=== PATIENT | male | born 1975 | race Caucasian/White ===

== ENCOUNTER 2017-09-24 14:20 | Emergency (ER) | payer MEDICAID ==
[~2017-09-24] VITALS: Ht 182.9 cm; Wt 135.0 kg
[~2017-09-24 14:20] MED LIST: CLOT15CR74 TP; CYCL-1 PO; HYDR-565 PO; ONDA4TAB6 PO; OXCA600T5 PO; PRED20TA PO; ROSU5TAB4 PO; TELM20TA2 PO; TRAZ-91 PO; WEL100T PO
[2017-09-24 14:26] VITALS: BP 155/83
[2017-09-24] MEDS ORDERED: ketorolac tromethamine 15mg/ml inj. IM ONE (15:45)
[2017-09-24] MEDS ORDERED: METH-360 PO (15:47)
[2017-09-24] MEDS ORDERED: IBUP-1985 PO (15:47)
== END 2017-09-24 15:58 | disposition home or self-care (01) ==
LOC: ER 14:21
DX: S29.012A Strain of muscle and tendon of back wall of thorax, initial encounter (principal); G89.29 Other chronic pain; E78.00 Pure hypercholesterolemia, unspecified; I10 Essential (primary) hypertension; Z98.890 Other specified postprocedural states; Z60.2 Problems related to living alone; X58.XXXA Exposure to other specified factors, initial encounter; Y93.89 Activity, other specified; Y92.89 Other specified places as the place of occurrence of the external cause; Y99.8 Other external cause status
CPT/HCPCS: 96372; 99283; J1885

== ENCOUNTER 2018-10-15 14:10 | Emergency (ER) | payer MEDICAID ==
[~2018-10-15] VITALS: Ht 177.8 cm; Wt 128.3 kg
[~2018-10-15 14:10] MED LIST changes: +APIX5TAB3 PO; +ATEN25TA PO; +BUPR300T53 PO; -CLOT15CR74 TP; -CYCL-1 PO; -HYDR-565 PO; +LOSA100T57 PO; +LURA40TA3 PO; +OMEP20CA11 PO; -ONDA4TAB6 PO; -OXCA600T5 PO; +PRAV20TA4 PO; -PRED20TA PO; -ROSU5TAB4 PO; -TELM20TA2 PO; +TOP100T PO; -TRAZ-91 PO; +TRAZ150T78 PO; -WEL100T PO
[2018-10-15 14:35] VITALS: BP 135/85
== END 2018-10-15 15:35 | disposition home or self-care (01) ==
LOC: ER 14:10
DX: L85.3 Xerosis cutis (principal); E78.00 Pure hypercholesterolemia, unspecified; I10 Essential (primary) hypertension; G89.29 Other chronic pain; F41.9 Anxiety disorder, unspecified; F32.9 Major depressive disorder, single episode, unspecified; Z86.69 Personal history of other diseases of the nervous system and sense organs; Z98.890 Other specified postprocedural states; Z79.899 Other long term (current) drug therapy; Z60.2 Problems related to living alone
CPT/HCPCS: 99281

== ENCOUNTER 2018-11-15 16:31 | Emergency (ER) | payer MEDICAID ==
[~2018-11-15] VITALS: Ht 177.8 cm; Wt 73.0 kg
--- NOTE | 2018-11-15 17:01 | NUR ---
SPOKE WITH PETE CASTANEDA: HE DOES NOT WANT LABS, PETE BELIEVES THAT HIS PRESENTATION APPEARS TO BE ANXIETY
--- NOTE | 2018-11-15 17:02 | NUR ---
LABS CANCELLED PER VERBAL ORDER FROM PETE CASTANEDA
--- NOTE | 2018-11-15 19:42 | NUR ---
gait test- start: 97% spo2, hr 72, rr 16 finish: 95%spo2, hr 72, rr 20
[2018-11-15 19:43] VITALS: BP 126/85
== END 2018-11-15 19:52 | disposition home or self-care (01) ==
LOC: ER 16:31
DX: R06.02 Shortness of breath (principal); E78.00 Pure hypercholesterolemia, unspecified; I10 Essential (primary) hypertension; G89.29 Other chronic pain; F41.9 Anxiety disorder, unspecified; F32.9 Major depressive disorder, single episode, unspecified; Z86.69 Personal history of other diseases of the nervous system and sense organs; Z98.890 Other specified postprocedural states; Z60.2 Problems related to living alone; Z79.899 Other long term (current) drug therapy
CPT/HCPCS: 71045; 93005; 99283

== ENCOUNTER → 2021-09-25 | Emergency (ER) | payer MEDICAID ==
[~2021-09-25] VITALS: Ht 182.9 cm; Wt 142.0 kg
[~2021-09-25] MED LIST changes: +LURA40TA2 PO; -LURA40TA3 PO; -OMEP20CA11 PO; +OMEP20CA15 PO
[2021-09-25 09:53] VITALS: BP 171/109
== END | disposition home or self-care (01) ==
LOC: ER 09:41
DX: G47.01 Insomnia due to medical condition (principal); R51.9 Headache, unspecified; E78.00 Pure hypercholesterolemia, unspecified; I10 Essential (primary) hypertension; G89.29 Other chronic pain; F41.9 Anxiety disorder, unspecified; F32.9 Major depressive disorder, single episode, unspecified; Z98.890 Other specified postprocedural states; Z60.2 Problems related to living alone; Z86.69 Personal history of other diseases of the nervous system and sense organs; Z79.01 Long term (current) use of anticoagulants; Z79.899 Other long term (current) drug therapy
CPT/HCPCS: 93005; 99283

== ENCOUNTER 2023-04-19 14:10 | Emergency (ER) | payer MEDICAID ==
[~2023-04-19] VITALS: Ht 182.9 cm; Wt 151.0 kg
[~2023-04-19 14:10] MED LIST changes: -LOSA100T57 PO; +LOSA100T58 PO
[2023-04-19 17:35] VITALS: BP 131/88; PULSE 74; RESP 18; O2SAT 97
[2023-04-19] MEDS ORDERED: METH-798 PO (18:12)
[2023-04-19] MEDS ORDERED: NAPR-56 PO (18:12)
[2023-04-19 18:23] VITALS: TEMP 98.1
== END 2023-04-19 18:26 | disposition home or self-care (01) ==
LOC: ER 14:11
DX: M54.50 Low back pain, unspecified (principal); E78.00 Pure hypercholesterolemia, unspecified; I10 Essential (primary) hypertension; G89.29 Other chronic pain; Z79.899 Other long term (current) drug therapy
CPT/HCPCS: 99283

== ENCOUNTER 2023-06-18 04:42 | Emergency (ER) | payer MEDICAID ==
[~2023-06-18] VITALS: Ht 182.9 cm; Wt 145.0 kg
[~2023-06-18 04:42] MED LIST changes: +METH-798 PO
[2023-06-18 05:36] LABS: URINE AMPHETAMINE SCREEN NEGATIVE (Neg); URINE BARBITUATE SCREEN NEGATIVE (Neg); URINE BENZODIAZEPINES SCREEN NEGATIVE (Neg); URINE CANNABINOID SCREEN NEGATIVE (Neg); URINE COCAINE SCREEN NEGATIVE (Neg); URINE METHADONE SCREEN NEGATIVE (Neg); URINE OPIATE SCREEN NEGATIVE (Neg); URINE PHENCYCLIDINE SCREEN NEGATIVE (Neg)
[2023-06-18 05:37] LABS: BASOPHILS # (AUTO) 0.1 X10'3 (0-0.2); BASOPHILS % (AUTO) 0.5 % (0-1); EOSINOPHILS # (AUTO) 0.3 X10'3 (0-0.9); EOSINOPHILS % (AUTO) 2.9 % (0-6); HEMATOCRIT 46.1 % (42.0-52.0); HEMOGLOBIN 15.6 g/dl (14.0-17.9); LYMPHOCYTES # (AUTO) 1.9 X10'3 (1.1-4.8); LYMPHOCYTES % (AUTO) 17.7 % (21-51); MEAN CORPUSCULAR HEMOGLOBIN 29.1 PG (27.0-31.0); MEAN CORPUSCULAR HGB CONC 33.7 g/dL (33.0-36.5); MEAN CORPUSCULAR VOLUME 86.2 FL (78-98); MEAN PLATELET VOLUME 9.9 FL (7.4-10.4); MONOCYTES % (AUTO) 8.9 % (2-12); NEUTROPHILS # (AUTO) 7.6 X10'3 (1.8-7.7); PLATELET COUNT 253 X10'3 (140-440); RED BLOOD COUNT 5.35 X10'6 (4.70-6.10); RED CELL DISTRIBUTION WIDTH 13.8 % (11.5-14.5); WHITE BLOOD COUNT 10.9 X10'3 (4.5-11.0)
[2023-06-18 05:43] LABS: ANION GAP 17 (8-16); BLOOD UREA NITROGEN 15 MG/DL (7-18); BUN/CREATININE RATIO 12.1 (10.0-20.0); CALCIUM 9.1 MG/DL (8.5-10.1); CHLORIDE 108 MMOL/L (99-107); CREATININE 1.24 MG/DL (0.60-1.10); GLUCOSE 115 MG/DL (70-104); POTASSIUM 3.7 MMOL/L (3.5-5.1); SODIUM 143 MMOL/L (135-145); THYROID STIMULATING HORMONE 4.75 ulU/ml (0.34-4.50); TOTAL CARBON DIOXIDE 18.4 MMOL/L (24-32); eCRCL 80 ML/MIN; eGFR 62 ML/MIN
[2023-06-18 05:45] LABS: ETHANOL < 10 MG/DL (<10)
[2023-06-18 07:10] LABS: FREE T4 (FREE THYROXINE) 1.02 NG/DL (0.73-1.40)
[2023-06-18] MEDS: normal saline 1000ML IV soln IVB ONE (08:02)
[2023-06-18 10:34] VITALS: BP 162/96; PULSE 80; RESP 18; O2SAT 99
[2023-06-18 16:08] VITALS: TEMP 98.2
== END 2023-06-18 16:13 | disposition home or self-care (01) ==
LOC: ER 04:43
DX: R45.851 Suicidal ideations (principal); Z20.822 Contact with and (suspected) exposure to COVID-19; E78.00 Pure hypercholesterolemia, unspecified; I10 Essential (primary) hypertension; F41.9 Anxiety disorder, unspecified; F32.A Depression, unspecified; Z79.899 Other long term (current) drug therapy; Z79.2 Long term (current) use of antibiotics; Z72.89 Other problems related to lifestyle
CPT/HCPCS: 36415; 80048; 80305; 80320; 84439; 84443; 85025; 87811; 96360; 96361; 99285; J7030; 99283

== ENCOUNTER 2023-06-20 03:01 | Inpatient (IN) | payer MEDICAID ==
[~2023-06-20] VITALS: Ht 182.9 cm; Wt 145.0 kg
[2023-06-20 08:00] LABS: BASOPHILS # (AUTO) 0.1 X10'3 (0-0.2); EOSINOPHILS # (AUTO) 0.3 X10'3 (0-0.9); EOSINOPHILS % (AUTO) 2.7 % (0-6); HEMATOCRIT 47.2 % (42.0-52.0); HEMOGLOBIN 15.8 g/dl (14.0-17.9); LYMPHOCYTES # (AUTO) 1.9 X10'3 (1.1-4.8); LYMPHOCYTES % (AUTO) 19.7 % (21-51); MEAN CORPUSCULAR HEMOGLOBIN 29.2 PG (27.0-31.0); MEAN CORPUSCULAR HGB CONC 33.6 g/dL (33.0-36.5); MEAN CORPUSCULAR VOLUME 86.8 FL (78-98); MEAN PLATELET VOLUME 9.4 FL (7.4-10.4); MONOCYTES % (AUTO) 10.6 % (2-12); NEUTROPHILS # (AUTO) 6.3 X10'3 (1.8-7.7); PLATELET COUNT 246 X10'3 (140-440); RED BLOOD COUNT 5.43 X10'6 (4.70-6.10); RED CELL DISTRIBUTION WIDTH 13.7 % (11.5-14.5); WHITE BLOOD COUNT 9.5 X10'3 (4.5-11.0)
[2023-06-20 08:07] LABS: BILIRUBIN,URINE NEGATIVE (Neg); CLARITY,URINE CLEAR (Clear); COLOR,URINE YELLOW (Yellow); GLUCOSE, URINE NEGATIVE (Neg); KETONES,URINE NEGATIVE (Neg); LEUKOCYTE ESTERASE ,URINE NEGATIVE (Neg); NITRITES, URINE NEGATIVE (Neg); OCCULT BLOOD,URINE SMALL (Neg); PH,URINE 5.5 (4.8-8.0); PROTEIN,URINE NEGATIVE (Neg); UROBILINOGEN,URINE 0.2 E.U/dL (0.2-1.0)
[2023-06-20 08:08] LABS: UA COLLECTION TYPE CLN CATCH MIDSTREAM
[2023-06-20 08:13] LABS: BACTERIA,URINE FEW /HPF (Neg); MUCUS STRANDS FEW /LPF (Neg); SQUAMOUS EPITHELIAL CELL,UR FEW /LPF (FEW); WBC,URINE 0-4 /HPF (0-4)
[2023-06-20 08:21] LABS: ANION GAP 14 (8-16); BLOOD UREA NITROGEN 14 MG/DL (7-18); BUN/CREATININE RATIO 10.2 (10.0-20.0); CALCIUM 9.5 MG/DL (8.5-10.1); CHLORIDE 106 MMOL/L (99-107); CREATININE 1.37 MG/DL (0.60-1.10); GLUCOSE 101 MG/DL (70-104); POTASSIUM 3.7 MMOL/L (3.5-5.1); SODIUM 143 MMOL/L (135-145); TOTAL CARBON DIOXIDE 22.6 MMOL/L (24-32); eCRCL 72 ML/MIN; eGFR 55 ML/MIN
[2023-06-20 08:22] LABS: URINE AMPHETAMINE SCREEN NEGATIVE (Neg); URINE BARBITUATE SCREEN NEGATIVE (Neg); URINE BENZODIAZEPINES SCREEN NEGATIVE (Neg); URINE CANNABINOID SCREEN NEGATIVE (Neg); URINE COCAINE SCREEN NEGATIVE (Neg); URINE METHADONE SCREEN NEGATIVE (Neg); URINE OPIATE SCREEN NEGATIVE (Neg); URINE PHENCYCLIDINE SCREEN NEGATIVE (Neg)
[2023-06-20 08:23] LABS: ETHANOL < 10 MG/DL (<10)
[2023-06-20] MEDS ORDERED: APIX5TAB3 PO (11:22)
[2023-06-20] MEDS: apixaban 5mg tablet PO SCH (12:06)
[2023-06-20] MEDS: LORazepam 1 MG tablet PO ONE ×2 (19:58→21:04)
[2023-06-20] MEDS: traZODone 150mg tablet PO SCH (19:58)
[2023-06-20] MEDS: topiramate 100mg tablet PO SCH (19:58)
[2023-06-20] MEDS: lurasidone 20mg tablet PO SCH (19:58)
[2023-06-20] MEDS: quetiapine 100mg tablet PO ONE ×2 (19:58→21:04)
[2023-06-21] MEDS ORDERED: pantoprazole 40mg Tablet.DR PO SCH (08:00)
[2023-06-21] MEDS: atorvastatin 10mg tablet PO SCH (10:15)
[2023-06-21] MEDS: losartan 50mg tablet PO SCH (10:16)
[2023-06-21] MEDS: pantoprazole 40mg Tablet.DR PO SCH (10:17)
[2023-06-21] MEDS: atenolol 25mg tablet PO SCH (10:18)
[2023-06-21 20:00] VITALS: BP 136/73; PULSE 81; RESP 18; TEMP 98.3; O2SAT 96
[2023-06-21] MEDS ORDERED: acetaminophen 325mg tablet PO PRN ×2 (21:15)
[2023-06-21] MEDS ORDERED: loperamide 2mg capsule PO PRN (21:15)
[2023-06-21] MEDS ORDERED: mag hydrox/Alum hydrox/simeth 30ml oral suspension PO PRN (21:15)
[2023-06-22 00:21] VITALS: RESP 18; O2SAT 96
[2023-06-22 07:20] VITALS: RESP 18; O2SAT 94
[2023-06-22 07:31] VITALS: BP 117/82; PULSE 80; RESP 18; TEMP 97.7; O2SAT 94
[2023-06-22 09:36] LABS: CHOL/HDL RATIO 3.3 (0.00-4.99); CHOLESTEROL 145 MG/DL (0-200); HDL CHOLESTEROL 44 MG/DL (35-60); LDL CHOLESTEROL 80 MG/DL (50-100); TRIGLYCERIDES 85 MG/DL (20-135)
[2023-06-22 19:00] VITALS: RESP 16; O2SAT 96
[2023-06-22 20:00] VITALS: BP 128/86; PULSE 107; RESP 16; TEMP 97.6; O2SAT 96
[2023-06-22] MEDS: mirtazapine 15mg tablet PO SCH (21:29)
[2023-06-22] MEDS: buPROPion SR 150mg tablet PO SCH (21:29)
[2023-06-23 07:00] VITALS: RESP 18; O2SAT 94
[2023-06-23 08:14] VITALS: BP 127/85; PULSE 93; RESP 12; TEMP 97.3; O2SAT 94
[2023-06-23 20:00] VITALS: BP 133/91; PULSE 94; RESP 12; TEMP 97.7; O2SAT 96
[2023-06-23] MEDS: mirtazapine 15mg tablet PO SCH (21:29)
[2023-06-23 22:53] VITALS: RESP 12; O2SAT 96
[2023-06-24 07:00] VITALS: RESP 16; O2SAT 95
[2023-06-24 08:00] VITALS: BP 124/84; PULSE 65; RESP 16; TEMP 98.5; O2SAT 95
[2023-06-24 19:00] VITALS: BP 137/94; PULSE 80; RESP 18; TEMP 97.7; O2SAT 97
[2023-06-24 21:35] VITALS: PULSE 68; RESP 15; O2SAT 96
[2023-06-24 23:31] VITALS: PULSE 77; RESP 14; O2SAT 96
[2023-06-25] VITALS (7 sets, daily range): BP systolic 121–130; BP diastolic 80–96; PULSE 65–89; RESP 12–18; TEMP 96.4–98; O2SAT 97–98
[2023-06-25] MEDS ORDERED: buPROPion SR 150mg tablet PO SCH (20:00)
[2023-06-25] MEDS: buPROPion SR 100mg tab PO SCH (20:16)
[2023-06-26 04:03] VITALS: PULSE 68; RESP 13; O2SAT 97
[2023-06-26 07:00] VITALS: RESP 12; O2SAT 99
[2023-06-26 08:00] VITALS: BP 137/95; PULSE 63; RESP 12; TEMP 97; O2SAT 99
[2023-06-26 20:00] VITALS: BP 143/98; PULSE 79; RESP 20; TEMP 97.2; O2SAT 98
[2023-06-27 03:56] VITALS: PULSE 67; RESP 17; O2SAT 98
[2023-06-27 07:30] VITALS: BP 127/78; PULSE 83; RESP 16; TEMP 98.2; O2SAT 99
[2023-06-27 08:02] VITALS: PULSE 70; RESP 17; O2SAT 97
[2023-06-27 20:00] VITALS: BP 127/94; PULSE 94; RESP 18; TEMP 98.4; O2SAT 97
[2023-06-27 21:12] VITALS: PULSE 86; RESP 15; O2SAT 98
[2023-06-27 23:57] VITALS: PULSE 82; RESP 22; O2SAT 98
[2023-06-28 04:04] VITALS: PULSE 74; RESP 16; O2SAT 97
[2023-06-28 07:29] VITALS: BP 138/95; PULSE 85; RESP 18; TEMP 98.1; O2SAT 93
[2023-06-28 07:50] VITALS: RESP 16
[2023-06-28 19:00] VITALS: RESP 16; O2SAT 98
[2023-06-28 19:41] VITALS: BP 127/89; PULSE 87; RESP 18; TEMP 97.1; O2SAT 96
[2023-06-28 22:21] VITALS: PULSE 86; RESP 23; O2SAT 98
[2023-06-29 00:16] VITALS: PULSE 79; RESP 24; O2SAT 96
[2023-06-29 03:54] VITALS: PULSE 76; RESP 22; O2SAT 96
[2023-06-29] MEDS: buPROPion SR 100mg tab PO SCH (08:37)
[2023-06-29 08:43] VITALS: BP 130/85; PULSE 80; RESP 18; TEMP 97.9; O2SAT 95
[2023-06-29 08:44] VITALS: RESP 18; O2SAT 95
[2023-06-29 19:04] VITALS: BP 138/97; PULSE 74; RESP 18; TEMP 97.9; O2SAT 96
[2023-06-29] MEDS: traZODone 50mg tablet PO SCH (21:22)
[2023-06-29 21:39] VITALS: PULSE 73; RESP 23; O2SAT 98
[2023-06-30] VITALS: PULSE 73; RESP 17; O2SAT 96
[2023-06-30 07:00] VITALS: BP 147/98; PULSE 81; RESP 16; TEMP 98.2; O2SAT 16; O2SAT 97
[2023-06-30] MEDS: magnesium hydroxide 30ml (MOM) UD suspension PO PRN (13:34)
[2023-06-30 19:00] VITALS: RESP 18; O2SAT 95
[2023-06-30 19:52] VITALS: BP 123/86; PULSE 75; RESP 18; TEMP 98.7; O2SAT 95
[2023-06-30 22:52] VITALS: PULSE 83; RESP 24; O2SAT 98
[2023-07-01 03:26] VITALS: PULSE 83; RESP 19; O2SAT 98
[2023-07-01 07:00] VITALS: BP 146/92; PULSE 84; RESP 16; TEMP 97.5; O2SAT 95
[2023-07-01] MEDS: atorvastatin 10mg tablet PO SCH (07:32)
[2023-07-01] MEDS: docusate sod 100mg capsule PO PRN (14:08)
[2023-07-01 19:00] VITALS: RESP 17; O2SAT 95
[2023-07-01 19:09] VITALS: BP 120/87; PULSE 82; RESP 17; TEMP 98.6; O2SAT 95
[2023-07-01] MEDS: traZODone 50mg tablet PO SCH (21:44)
[2023-07-01] MEDS: hydrOXYzine 25 MG tablet PO PRN (21:50)
[2023-07-01 22:31] VITALS: PULSE 87; RESP 18; O2SAT 99
[2023-07-02] MEDS: traZODone 50mg tablet PO ONE (01:44)
[2023-07-02 03:44] VITALS: PULSE 74; RESP 12; O2SAT 99
[2023-07-02 07:00] VITALS: RESP 16; O2SAT 94
[2023-07-02 07:30] VITALS: BP 125/86; PULSE 89; RESP 16; TEMP 98.1; O2SAT 94
[2023-07-02 19:00] VITALS: BP 145/87; PULSE 86; RESP 16; TEMP 98.7; O2SAT 94; O2SAT 96
[2023-07-02] MEDS: traZODone 50mg tablet PO SCH (21:05)
[2023-07-03 07:00] VITALS: RESP 16; O2SAT 96
[2023-07-03 08:00] VITALS: BP 139/86; PULSE 82; RESP 12; TEMP 97.9; O2SAT 95
[2023-07-03 19:00] VITALS: RESP 16; O2SAT 96
[2023-07-03 20:00] VITALS: BP 127/89; PULSE 80; RESP 16; TEMP 97.8; O2SAT 96
[2023-07-04 07:00] VITALS: RESP 16; O2SAT 95
[2023-07-04 08:00] VITALS: BP 118/88; PULSE 85; RESP 12; TEMP 97.7; O2SAT 96
[2023-07-04 18:56] VITALS: RESP 16; O2SAT 95
[2023-07-04 20:00] VITALS: BP 109/74; PULSE 79; RESP 16; TEMP 98.3; O2SAT 95
[2023-07-05 07:00] VITALS: RESP 14; O2SAT 96
[2023-07-05 07:41] VITALS: BP 132/78; PULSE 69; RESP 14; TEMP 97.1; O2SAT 96
[2023-07-05 19:30] VITALS: BP 106/74; PULSE 78; RESP 16; TEMP 98.4; O2SAT 95
[2023-07-06 07:00] VITALS: RESP 18; O2SAT 96
[2023-07-06 07:30] VITALS: BP 98/52; PULSE 71; RESP 18; TEMP 97.4; O2SAT 96
[2023-07-06 08:00] VITALS: BP_SYST 98; PULSE 71
[2023-07-06] MEDS ORDERED: TRAZ150T78 PO (14:07)
[2023-07-06] MEDS ORDERED: LOSA100T58 PO (14:07)
[2023-07-06] MEDS ORDERED: PRAV20TA4 PO (14:07)
[2023-07-06] MEDS ORDERED: ATEN25TA PO (14:07)
[2023-07-06] MEDS ORDERED: TOP100T PO (14:07)
[2023-07-06] MEDS ORDERED: BUPR100T15 PO (14:07)
[2023-07-06] MEDS ORDERED: MIRT-87 PO (14:07)
[2023-07-06] MEDS ORDERED: OMEP20CA15 PO (14:07)
[2023-07-06] MEDS ORDERED: APIX5TAB3 PO (14:07)
== END 2023-07-06 15:51 | disposition home or self-care (01) | DRG 751 ==
LOC: ER 03:02 → ADULT MH 06-21 13:20 → UNDOADMIN 06-21 13:20 → ADULT MH 06-21 14:30
PROVIDERS: ADMIT Psychiatry & Neurology Psychiatry; ATTEND Psychiatry & Neurology Psychiatry
PROC: GZHZZZZ Group Psychotherapy (ICD-10-PCS; principal; 2023-06-25)
PROC: GZ51ZZZ Individual Psychotherapy, Behavioral (ICD-10-PCS; 2023-06-25)
DX: F33.2 Major depressive disorder, recurrent severe without psychotic features (principal); R45.851 Suicidal ideations; E78.00 Pure hypercholesterolemia, unspecified; I10 Essential (primary) hypertension; F41.9 Anxiety disorder, unspecified; G89.29 Other chronic pain; M54.9 Dorsalgia, unspecified; F84.5 Asperger's syndrome; Z20.822 Contact with and (suspected) exposure to COVID-19; G47.00 Insomnia, unspecified; K21.9 Gastro-esophageal reflux disease without esophagitis; E66.01 Morbid (severe) obesity due to excess calories; Z86.711 Personal history of pulmonary embolism; Z79.01 Long term (current) use of anticoagulants; Z79.899 Other long term (current) drug therapy; Z68.41 Body mass index [BMI] 40.0-44.9, adult
CPT/HCPCS: 36415; 70450; 80048; 80061; 80305; 80320; 81001; 85025; 87081; 87811; 94660; 94760; 99285; Q0177